=== PATIENT | male | born 1995 | race Caucasian/White ===

== ENCOUNTER → 2018-07-15 | Outpatient (CLI) | payer OTHER ==
--- NOTE | 2018-07-15 17:14 | 2DMMODE ---
[facility] [place] [address] 2 D/M-MODE ECHOCARDIOGRAM Name: JULIEN ESPARZA Room #: REG [facility]#: [id number] ������������� Admission: 07/15/18 ������������� Attend Phys: Mike Corbett, Discharge: ��� ������������� ��� Date of : [birth year] Date of Service: 07/15/18 1714 �� Report #: [id number] �������� ��������������������������������������������[id number] THIS REPORT FOR: //name// APPROVED REPORT Study performed: 07/15/2018 15:11:25 EXAM: Comprehensive 2D, Doppler, and color-flow Echocardiogram Patient Location: Out-Patient Room #: Echo lab 2 Status: routine BSA: 2.03 HR: 53 bpm BP: 132/78 mmHg Rhythm: Bradycardia Other Information Study Quality: Good Indications Tachycardia 2D Dimensions RVDd: 34.23 mm IVSd: 7.25 (7-11mm) LVOT Diam: 22.79 (18-24mm) LVDd: 50.03 mm PWd: 8.81 (7-11mm) Ascending Ao: 29.75 (22-36mm) LVDs: 27.98 (25-40mm) Aortic Root: 30.51 mm IVC: 19.00 mm Volumes Left Atrial Volume (Systole) Single Plane 4CH: 48.08 mL Single Plane 2CH: 60.72 mL LA ESV Index: 29.00 mL/m2 Aortic Valve AoV Peak Dante.: 1.35 m/s AO Peak Gr.: 7.30 mmHg LVOT Max P.32 mmHg LVOT Max V: 1.26 m/s SOLANGE Vmax: 3.79 cm2 Mitral Valve E/A Ratio: 1.6 MV Decel. Time: 225.14 ms MV E Max Dante.: 1.06 m/s [facility] [address] [place] [address] 2 D/M-MODE ECHOCARDIOGRAM Name: JULIEN ESPARZA Room #: [facility]#: [id number] ������������� Admission: 07/15/18 ������������� Attend Phys: Mike Corbett, Discharge: ��� ������������� ��� Date of : [birth year] Date of Service: 07/15/18 1714 �� Report #: [id number] �������� ��������������������������������������������[id number] MV A Dante.: 0.68 m/s MV PHT: 65.29 ms IVRT: 78.43 ms Pulmonary Valve PV Peak Dante.: 1.17 m/s PV Peak Gr.: 5.52 mmHg Pulmonary Vein P Vein S: 0.63 m/s P Vein A: 0.24 m/s P Vein D: 0.61 m/s P Vein A Dur.: 106.1 msec P Vein S/D Ratio: 1.03 Tricuspid Valve TR Peak Dante.: 2.14 m/s TR Peak Gr.: 18.32 mmHg PA Pressure: 23.00 mmHg Left Ventricle The left ventricle is normal size. There is normal LV segmental wall motion. There is normal left ventricular wall thickness. Left ventricular systolic function is normal. The left ventricular ejection fraction is within the normal range. LVEF is 55-60%. The left ventricular diastolic function is normal. Right Ventricle The right ventricle is normal size. The right ventricular systolic function is normal. Atria The left atrium size is normal. The right atrium size is normal. Aortic Valve The aortic valve is normal in structure. No aortic regurgitation is present. There is no aortic valvular stenosis. Mitral Valve The mitral valve is normal in structure. There is no mitral valve regurgitation noted. No evidence of mitral valve stenosis. Tricuspid Valve The tricuspid valve is normal in structure. There is trace tricuspid regurgitation. Estimated PAP 23 mmHg. There is no pulmonary hypertension. Pulmonic Valve [address] [address] 2 D/M-MODE ECHOCARDIOGRAM Name: JULIEN ESPARZA Room #: REG [facility]#: [id number] ������������� Admission: 07/15/18 ������������� Attend Phys: Mike Corbett, Discharge: ��� ������������� ��� Date of : [birth year] Date of Service: 07/15/18 1714 �� Report #: [id number] �������� ��������������������������������������������[id number] The pulmonary valve is normal in structure. There is no pulmonic valvular regurgitation. Great Vessels The aortic root is normal in size. IVC is normal in size and collapses >50% with inspiration. Pericardium There is no pericardial effusion. <Conclusion> The left ventricle is normal size. LVEF is 55-60%. The left ventricular diastolic function is normal. The right ventricle is normal size. The left atrium size is normal. The aortic valve is normal in structure. The mitral valve is normal in structure. There is trace tricuspid regurgitation. Estimated PAP 23 mmHg. There is no pulmonary hypertension. The aortic root is normal in size. There is no pericardial effusion. ��������������������������������������������� <ELECTRONICALLY SIGNED> ���������������������������������������� By: Go Dutta MD, FACC ��������������������������������������������� 07/15/18 171 13 13 Go Dutta MD, FACC /INF
== END ==
LOC: CV 09:59
DX: R00.0 Tachycardia, unspecified (principal)

== ENCOUNTER → 2018-12-14 | Outpatient (CLI) | payer OTHER ==
[~2018-12-14] VITALS: Ht 188 cm; Wt 79.4 kg
[~2018-12-14] MED LIST: DOXYCYCLINE HY100 M3 PO; VYVANSE40 MG; ZYRTEC10 M4 PO
--- NOTE | ~2018-12-14 | P ---
[facility] [place] [address] PROCEDURE REPORT Name: VILMAJULIEN JAMES Room #: REG [facility].#: [id number] Admission: 12/14/18 ������������������ Attend Phys: Neftaly Cid MD Discharge: ������������������ Date of : [birth year] Report #: [id number] THIS REPORT FOR: //name// CC: Neftaly Corbett PREOPERATIVE DIAGNOSIS: Supraventricular tachycardia. POSTOPERATIVE DIAGNOSIS: Supraventricular tachycardia. PROCEDURES PERFORMED: 1. SVT ablation, CPT code 01322. 2. EP with left atrial pacing and recording, CPT code 66857. 3. Program stimulation and pacing after IV drug infusion, CPT code 20122. 4. 3D mapping, CPT code 04877. 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 He is here for EP study and possible ablation. ANESTHESIA: The patient underwent MAC anesthesia with no anesthesia related complications. DESCRIPTION OF PROCEDURE: The patient underwent informed consent. We discussed the details of the procedure including the risks, which include but not limited to bleeding, vascular damage, cardiac perforation, stroke, MN as well as damage to the nome conduction system requiring permanent pacemaker. He understood these risks and is willing to proceed. The patient was brought to the EP laboratory in fasting and sedated state, prepped and draped in a sterile fashion. I obtained access to the bilateral femoral veins and placed sheaths using the modified Seldinger technique. In the right femoral vein, I placed an 8 and 6-Andorran short sheath and in the left femoral vein, I placed a 6 and 7-Andorran short sheath. Under fluoroscopy, I placed a decapolar catheter easily in the coronary sinus, which was used for atrial pacing and recording. I placed 3 quadripolar catheters at the HRA, HIS and RV positions. At baseline, the patient was in sinus rhythm with a sinus cycle length of 1290 milliseconds, IL interval 175 milliseconds, QRS duration 80 milliseconds, QT interval 445 milliseconds, AH interval 103 milliseconds, HV interval 41 milliseconds. Next, atrial burst pacing was performed and AV block was noted at 780 milliseconds. It appeared that the patient had a high vagal tone once he was sedated. Ventricular pacing was performed and VA block was noted to be 730 milliseconds. VA conduction appeared to be midline and decremental. Next, isoproterenol infusion was initiated at 2 mcg per minute and [address] [address] PROCEDURE REPORT Name: JULIEN ESPARZA Room #: REG [facility].#: [id number] Admission: 12/14/18 ������������������ Attend Phys: Neftaly Cid MD Discharge: ������������������ Date of : [birth year] Report #: [id number] AV block was noted at 470 milliseconds. With single atrial extrastimuli, there was evidence of single AV jennifer echoes. AV jennifer ERP was noted at 330 milliseconds at a [address] cycle length. VA block was noted at 310 milliseconds and ventricular ERP was noted at 220 milliseconds at a [address] cycle length. VA conduction appeared to be both midline and decremental. Next, isoproterenol was increased to 4 mcg per minute. AV block was 300 milliseconds. Atrial ERP was 260 milliseconds at a [address] cycle length. Double atrial extrastimuli were delivered and no SVT was induced. VA block was now noted to be less than 270 milliseconds. Isoproterenol was increased to 6 mcg per minute. AV block was noted to be 270 milliseconds. AV jennifer ERP was noted at be 260 milliseconds at [address] cycle length and double atrial extrastimuli did not induce SVT. I then increased isoproterenol to 7 mcg per minute and again we could not induce any SVT. Based on his monitoring analyst that demonstrated SVT that was consistent with AV jennifer reentrant tachycardia and evidence of single AV jennifer echos on our EP study, I decided to proceed with slow pathway modification. It appears that it was going to be very difficult to induce AVNRT in this patient unless he is in the very high catecholaminergic state like when he is playing soccer. 3D MAPPING AND ABLATION: A SR0 sheath and a 4-mm Biosense Mariee ablation catheter was placed in the right atrium. I created a detailed 3D geometry and voltage map of the right atrium with specific emphasis of the slow pathway region and His-bundle region. I performed a total of 6 ablation lesions. The last 4 lesions resulted in nice slow junctionals. There was never compromise to his AV jennifer conduction. Post-ablation testing was performed. Isoproterenol was initiated again at 5 mcg per minute and AV block was noted at 310 milliseconds and AV jennifer ERP was noted at 260 milliseconds at a [address] cycle length. Again, there was no evidence of inducible SVT. Post-ablation, the patient was in sinus rhythm with a sinus cycle length of 1000 milliseconds, IL interval 180 milliseconds, QRS duration 70 milliseconds, QT interval 395 milliseconds, AH interval 93 milliseconds and HV interval 41 milliseconds. As such, all catheters and sheaths were pulled and hemostasis was obtained. There were no procedure related complications. CONCLUSIONS: 1. Successful slow pathway modification. 2. Normal SA jennifer function. 3. Normal AV jennifer function. 4. Normal His-Purkinje function. [facility] [address] [place] [address] PROCEDURE REPORT Name: JULIEN ESPARZA Room #: REG [facility].#: [id number] Admission: 12/14/18 ������������������ Attend Phys: Neftaly Cid MD Discharge: ������������������ Date of : [birth year] Report #: [id number] 5. No evidence of an accessory pathway mediated tachycardia. 6. No induction of atrial tachycardia, atrial fibrillation or atrial flutter. ��������������������������������������������� ���������������������������������������� By: ��������������������������������������������� 1602 1735 Neftaly Cid MD /nt
[2018-12-14 07:02] VITALS: BP 113/55
[2018-12-14 07:13] LABS: BASOPHILS 0.7 % (0.0-2.0); EOSINOPHILS 2.3 % (0.0-3.0); HEMATOCRIT 41.6 % (42.0-52.0); HEMOGLOBIN 13.9 gm/dL (14.0-18.0); LYMPHOCYTES 35.8 % (24.0-44.0); MCH 30.8 pg (26.0-34.0); MCHC 33.5 g/dL (28.0-37.0); MCV 91.8 fL (80.0-100.0); MONOCYTES 10.6 % (1.0-8.0); PLATELET COUNT 186 thou/uL (150-400); POLYS 50.6 % (36.0-66.0); RBC 4.53 mil/uL (4.50-6.00); RDW 12.4 % (10.5-14.5)
[2018-12-14 07:20] LABS: CALCIUM 9.3 mg/dL (8.5-10.1); POTASSIUM 3.9 mmol/L (3.5-5.1)
[2018-12-14 07:26] LABS: ALBUMIN 4.1 g/dL (3.4-5.0); TOTAL BILIRUBIN 0.5 mg/dL (<0.1-1.0); TOTAL PROTEIN 7.5 g/dL (6.4-8.2)
[2018-12-14 07:31] LABS: APTT 29.6 Seconds (24.5-32.8); INR 1.1; PROTIME 11.1 Seconds (9.3-11.4)
== END | disposition home or self-care (01) ==
LOC: CATH 06:34
PROVIDERS: Internal Medicine Cardiovascular Disease
DX: I47.1 Supraventricular tachycardia (principal); Z79.899 Other long term (current) drug therapy; Z88.0 Allergy status to penicillin; Z88.8 Allergy status to other drugs, medicaments and biological substances; Z79.01 Long term (current) use of anticoagulants
CPT/HCPCS: 62110; 62900; 70005